=== PATIENT | male | born 1985 | race Caucasian/White ===

== ENCOUNTER 2025-06-08 08:29 | Emergency (ER) | payer MEDICARE ==
[~2025-06-08] VITALS: Ht 170.2 cm; Wt 130.0 kg
[2025-06-08 09:08] LABS: BASOPHILS 0.9 % (0.2-1.2); EOSINOPHILS 2.1 % (0.8-7.0); LYMPHOCYTES 22.3 % (21.8-53.1); MCH 28.1 PG (25.7-32.2); MCHC 33.2 g/dL (32.3-36.5); MCV 84.8 fL (79.0-92.2); MONOCYTES 7.7 % (5.3-12.2); NEUTROPHILS 66.6 % (34.0-67.9); RBC 5.58 M/uL (4.63-6.08)
[2025-06-08 09:25] LABS: ALT (SGPT) 40.0 U/L (14-59); AST (SGOT) 16.0 U/L (15-37); GLOMERULAR FILTRATION RATE,EST 85.0 mL/min (>60); PROTEIN, TOTAL 6.8 g/dL (6.4-8.2); UREA NITROGEN 20.0 mg/dL (7-18)
[2025-06-08] MEDS ORDERED: PANTOPRAZOLE SODIUM 40 MG/10 ML VIAL IV ONE (09:30)
[2025-06-08] MEDS ORDERED: OMEPRAZOLE40 MG PO (10:26)
[2025-06-08 10:39] VITALS: BP 153/118
== END 2025-06-08 10:40 | disposition home or self-care (01) ==
LOC: ED 08:29
PROVIDERS: Emergency Medicine
DX: K92.0 Hematemesis (principal); Z88.2 Allergy status to sulfonamides; Z88.0 Allergy status to penicillin
CPT/HCPCS: 36415; 80053; 83690; 83735; 85025; 96374; 99284-25; J2470